=== PATIENT | female | born 1995 | race Caucasian/White ===

== ENCOUNTER → 2019-08-24 16:21 | Observation (INO) ==
[2019-08-24 16:17] VITALS: BP 117/56
[~2019-08-24 16:21] MED LIST: Betamethasone Acet/SodPhos 30 MG/5 ML VIAL IM SCH
== END | disposition home or self-care (01) ==
LOC: 1NENULAB
PROVIDERS: ADMIT Registered Nurse; ATTEND Registered Nurse

== ENCOUNTER 2019-09-27 07:20 | Inpatient (IN) ==
[~2019-09-27 07:20] MED LIST changes: -Betamethasone Acet/SodPhos 30 MG/5 ML VIAL IM SCH; +Clindamycin 900 MG/50 ML 900 MG/50 ML IV.SOLN IVPB ONE; +Famotidine 20 MG/2 ML VIAL IVP ONE; +Metoclopramide 10 MG/2 ML VIAL IVP ONE; +Oxytocin 20 units/ LR 1000 mL 20 UNIT/1,000 ML BAG IVC ONE; +Ringers Solution, Lactated 1,000 ML IVC ONE
[2019-09-27] MEDS ORDERED: Oxytocin 20 units/ LR 1000 mL 20 UNIT/1,000 ML BAG IVC SCH ×2 (07:30→11:39)
[2019-09-27] MEDS ORDERED: Ringers Solution, Lactated 1,000 ML IVC SCH (07:30)
[2019-09-27] MEDS ORDERED: *HR* Oxytocin 10 UNIT/ML VIAL IM ONE ×3 (07:33→09:56)
[2019-09-27] MEDS ORDERED: *HR* Propofol 200 MG/20 ML VIAL IVP ONE (07:33)
[2019-09-27] MEDS ORDERED: *HR* Succinylcholine 200 MG/10 ML VIAL IVP ONE (07:33)
[2019-09-27] MEDS ORDERED: *HR* Rocuronium Bromide 50 MG/5 ML VIAL ONE (07:35)
[2019-09-27] MEDS ORDERED: Ondansetron 4 MG/2 ML VIAL IVP ONE (07:42)
[2019-09-27] MEDS ORDERED: *HR* Meperidine 50 MG/ML SYRINGE IVP PRN (07:42)
[2019-09-27] MEDS ORDERED: *HR* Promethazine 25 MG/ML VIAL IVP PRN (07:42)
[2019-09-27] MEDS ORDERED: *HR* HYDROcodone/Acet 5/325 mg TABLET PO PRN (07:42)
[2019-09-27] MEDS ORDERED: *HR* HYDROmorphone (PF) 1 MG/ML SYRINGE IVP PRN (07:42)
[2019-09-27 07:52] LABS: Basophils % 0.4 %; Eosinophils # 0.1 K/mcL (0.0-0.6); Eosinophils % 0.5 %; Hematocrit 31.9 % (35.3-44.9); Hemoglobin 10.3 g/dL (11.5-15.4); Immature Granulocytes % 0.9 % (0-4); Lymphocytes # 1.3 K/mcL (0.6-4.6); Lymphocytes % 12.6 %; Mean Corpuscular HGB Conc 32.3 g/dL (31.6-35.5); Mean Corpuscular Hemoglobin 26.4 pg (28.0-33.3); Mean Corpuscular Volume 81.8 fL (83.0-100.0); Mean Platelet Volume 11.4 fL (9.4-12.4); Monocytes # 0.9 K/mcL (0.0-1.3); Neutrophils # 8.2 K/mcL (1.6-8.9); Nucleated Red Blood Cells 0.2 /100 WBC (0); Platelet Count 194 K/mcL (140-400); Red Cell Distribution Width 13.2 % (11.5-14.5); Segmented Neutrophils % 77.6 %; White Blood Count 10.6 K/mcL (4.3-11.1)
[2019-09-27] MEDS ORDERED: *HR* HYDROMORPHONE 2 MG/ML VIAL ONE (07:52)
[2019-09-27 07:56] LABS: Cord Venous Blood HCO3 23 mEq/L; Cord Venous Blood PCO2 45 mmHg (27-42); Cord Venous Blood PO2 40 mmHg (15-45)
[2019-09-27] MEDS ORDERED: Ringers Solution, Lactated 1,000 ML ONE ×2 (08:01→08:07)
[2019-09-27] MEDS ORDERED: Ketorolac 30 MG/ML VIAL ONE (08:23)
[2019-09-27] MEDS ORDERED: Acetaminophen IV 1,000 MG/100 ML INFUS..BTL IVPB ONE (10:20)
[2019-09-27] MEDS ORDERED: Ibuprofen 600 MG TABLET PO PRN (11:39)
[2019-09-27] MEDS ORDERED: Ondansetron 4 MG/2 ML VIAL IVP PRN (11:39)
[2019-09-27] MEDS ORDERED: Metoclopramide 10 MG/2 ML VIAL IVP PRN (11:39)
[2019-09-27] MEDS ORDERED: *HR* HYDROmorphone 20 MG/20 ML PCA IVC PRN ×2 (11:39→12:30)
[2019-09-27] MEDS ORDERED: Simethicone 80 MG TAB.CHEW PO PRN (11:39)
[2019-09-27] MEDS ORDERED: Sennosides 8.6 MG TABLET PO PRN (11:39)
[2019-09-27] MEDS ORDERED: *HR* OxyCODONE/APAP 5/325 TABLET PO PRN (11:39)
[2019-09-27] MEDS: Prenatal Vit/FA 1 EACH TABLET PO SCH (12:55)
[2019-09-27 14:16] LABS: Basophils % 0.2 %; Eosinophils % 0.1 %; Hematocrit 28.2 % (35.3-44.9); Hemoglobin 9.4 g/dL (11.5-15.4); Lymphocytes # 1.2 K/mcL (0.6-4.6); Lymphocytes % 7.1 %; Mean Corpuscular HGB Conc 33.3 g/dL (31.6-35.5); Mean Corpuscular Hemoglobin 27.1 pg (28.0-33.3); Mean Corpuscular Volume 81.3 fL (83.0-100.0); Mean Platelet Volume 11.4 fL (9.4-12.4); Monocytes # 0.9 K/mcL (0.0-1.3); Monocytes % 5.1 %; Nucleated Red Blood Cells 0.1 /100 WBC (0); Platelet Count 183 K/mcL (140-400); Red Blood Count 3.47 M/mcL (3.82-4.97); Segmented Neutrophils % 86.5 %
[2019-09-27 14:17] LABS: Neutrophils # 14.5 K/mcL (1.6-8.9); White Blood Count 16.7 K/mcL (4.3-11.1)
[2019-09-27] MEDS: Clindamycin 900 MG/50 ML 900 MG/50 ML IV.SOLN IVPB SCH ×2 (17:05→23:47)
[2019-09-27] MEDS: Acetaminophen 325 MG TABLET PO SCH (19:00)
[2019-09-27] MEDS: Ringers Solution, Lactated 1,000 ML IVC SCH (20:03)
[2019-09-27] MEDS: Ketorolac 30 MG/ML VIAL IVP SCH (23:12)
[2019-09-28] MEDS: Acetaminophen 325 MG TABLET PO SCH (00:54)
[2019-09-28] MEDS: Ringers Solution, Lactated 1,000 ML IVC SCH (05:42)
[2019-09-28] MEDS: Ketorolac 30 MG/ML VIAL IVP SCH (05:42)
[2019-09-28 05:55] LABS: Basophils # 0.1 K/mcL (0.0-0.2); Basophils % 0.3 %; Eosinophils # 0.1 K/mcL (0.0-0.6); Eosinophils % 0.4 %; Hemoglobin 7.3 g/dL (11.5-15.4); Immature Granulocytes % 0.8 % (0-4); Lymphocytes # 2.3 K/mcL (0.6-4.6); Lymphocytes % 16.2 %; Mean Corpuscular HGB Conc 31.7 g/dL (31.6-35.5); Mean Corpuscular Hemoglobin 26.9 pg (28.0-33.3); Mean Corpuscular Volume 84.9 fL (83.0-100.0); Mean Platelet Volume 11.1 fL (9.4-12.4); Monocytes # 1.5 K/mcL (0.0-1.3); Monocytes % 10.2 %; Neutrophils # 10.4 K/mcL (1.6-8.9); Platelet Count 180 K/mcL (140-400); Red Blood Count 2.71 M/mcL (3.82-4.97); Red Cell Distribution Width 13.2 % (11.5-14.5); Segmented Neutrophils % 72.1 %; White Blood Count 14.4 K/mcL (4.3-11.1)
[2019-09-28 07:58] VITALS: BP 112/71
[2019-09-28] MEDS: Prenatal Vit/FA 1 EACH TABLET PO SCH (10:09)
[2019-09-28] MEDS: Clindamycin 900 MG/50 ML 900 MG/50 ML IV.SOLN IVPB SCH (10:09)
== END 2019-09-28 13:50 | disposition left against medical advice (07) | DRG 540 ==
LOC: 1NENULAB → 1NENUOBS 11:36
PROVIDERS: ADMIT Obstetrics & Gynecology; ATTEND Obstetrics & Gynecology